=== PATIENT | male | born 1995 ===

== ENCOUNTER 2021-10-16 15:15 | Outpatient (CLI) | payer OTHER, SELFPAY ==
[2021-10-16 21:50] LABS: Chloride* 102 mmol/L (96-114)
[2021-10-16 21:57] LABS: Potassium* 4.3 mmol/L (3.6-5.1); Sodium* 139 mmol/L (135-149)
[2021-10-16 21:59] LABS: Creatinine* 0.9 mg/dL (0.5-1.5); Estimated Glomerular Filt Rate 122 ml/min
[2021-10-16 22:00] LABS: Blood Urea Nitrogen* 19 mg/dL (5-24); Calcium* 9.5 mg/dL (8.4-10.6); Carbon Dioxide* 28 mmol/L (20-32); Glucose* 85 mg/dL (60-115)
== END 2021-10-16 15:16 | disposition home or self-care (01) ==
PROVIDERS: PCP Emergency Medicine; Visit Provider Emergency Medicine
DX: R53.83 Other fatigue (principal); F32.A Depression, unspecified; F42.9 Obsessive-compulsive disorder, unspecified
CPT/HCPCS: 80048; 84443

== ENCOUNTER 2022-04-29 19:35 | Outpatient (CLI) | payer OTHER, SELFPAY ==
--- NOTE | 2022-05-06 12:49 | W.PM.SLEEP ---
Sleep Study Details Details Interpreting Provider: Nellie Date of Sleep Study: 04/29/22 Sleep Study Details: STUDY TYPE:? Home ? BMI:? Not recorded ORDERING PROVIDER:? Chin INDICATION:? Concerns about sleep apnea ? SLEEP SUMMARY:? 553.9 minutes monitored RESPIRATORY SUMMARY:? AHI 36, supine 39.3, left lateral 5.6, right lateral 35.6 Low oxygen 75 7.1% of study oxygen less than 90%, 1.6% of study less than 85%, 0.5% of study less than 80% Snoring 19.2% PERIODIC LIMB MOVEMENTS OF SLEEP:? Not recorded CARDIAC:? Range 48-97, mean 65.1 IMPRESSION:? Severe obstructive sleep apnea. RECOMMENDATION: AutoSet CPAP at a pressure of 4-17.
== END 2022-04-29 19:36 | disposition home or self-care (01) ==
PROVIDERS: PCP Emergency Medicine; Visit Provider Emergency Medicine
DX: G47.33 Obstructive sleep apnea (adult) (pediatric) (principal)
CPT/HCPCS: 95806

== ENCOUNTER 2023-04-02 15:05 | Outpatient (CLI) | payer OTHER, SELFPAY | END 2023-04-02 15:06 | disposition home or self-care (01) | PROVIDERS: PCP Emergency Medicine; Referring Provider Emergency Medicine; Visit Provider Emergency Medicine | DX: F32.A Depression, unspecified (principal); R53.83 Other fatigue; R63.5 Abnormal weight gain | CPT/HCPCS: 84443 ==